=== PATIENT | male | born 1965 | race Caucasian/White ===

== ENCOUNTER 2020-04-05 16:52 | Emergency (ER) | payer BC ==
[2020-04-05] MEDS ORDERED: Diphtheria,Pertussis(Acell),Tetanus Vaccine 0.5 ML Syringe IM ONE (17:20)
[2020-04-05] MEDS ORDERED: Bacitracin Oint 1 GM U/D Packet TOP ONE (17:21)
--- NOTE | 2020-04-05 17:24 | EDM.PDOC ---
ED HPI GENERAL MEDICAL PROBLEM - General Chief Complaint: Laceration Stated Complaint: INJURY RT INDEX FINGER Time Seen by Provider: 04/05/20 17:04 - History of Present Illness INITIAL COMMENTS - FREE TEXT/NARRATIVE: History of present illness: Patient presents the ED with an injury to his right dominant index finger he was using a table saw when a board kicked back and struck him in the right index finger there is a small wound to the lateral aspect of the upper phalanx of the right index finger with some swelling he says it hurts to move the joint is having trouble moving it there is also an abrasion on his forearm that is superficial the patient states his tetanus is not up-to-date no other complaints no other concerns no other medical problems nothing makes it better moving it makes it worse. Review of systems: As per history of present illness and below otherwise all systems reviewed and negative. Past medical history: As per history of present illness and as reviewed below otherwise noncontributory. Surgical history: As per history of present illness and as reviewed below otherwise noncontributory. Social history: No reported history of drug or alcohol abuse. Family history: As per history of present illness and as reviewed below otherwise noncontributory. Physical exam: HEENT: Atraumatic, normocephalic, pupils reactive, negative for conjunctival pallor or scleral icterus, mucous membranes moist, throat clear, neck supple, nontender, trachea midline. Lungs: Clear to auscultation, breath sounds equal bilaterally, chest nontender. Heart: S1S2, regular, negative for clicks, rubs, or JVD. Abdomen: Soft, nondistended, nontender. Negative for masses or hepatosplenomegaly. Negative for costovertebral tenderness. Pelvis: Stable nontender. Genitourinary: Deferred. Rectal: Deferred. Extremities: Atraumatic, negative for cords or calf pain. Neurovascular unremarkable. There are a couple punctate wounds to the lateral aspect of the proximal index finger bleeding controlled no foreign bodies the joint is swollen it is tender he has good distal pulse motor and sensation there is a 2 cm small abrasion to the volar aspect of the forearm approximately mid forearm bleeding controlled Neuro: Awake, alert, oriented. Cranial nerves II through XII unremarkable. Cerebellum unremarkable. Motor and sensory unremarkable throughout. Exam nonfocal. Diagnostics: [] Therapeutics: [] Impression: [] Plan: Clean wounds update tetanus x-ray hand splint follow-up with [facility] [address], [address] [place] [address] [] Definitive disposition and diagnosis as appropriate pending reevaluation and review of above. Patient presents R index finger Pain Score (Numeric/FACES): 3 - Related Data Allergies Allergy/AdvReac Type Severity Reaction Status Date / Time No Known Allergies Allergy Verified 04/05/20 17:29 Home Meds: Home Meds Anti-Dm 04/05/20 [History] Naproxen [Naprosyn] 500 mg PO Q12HR #20 tab 04/05/20 [Rx] lisinopriL [Lisinopril] 0 mg PO DAILY 04/05/20 [History] ED ROS GENERAL - Review of Systems Review Of Systems: See Below ED EXAM, SKIN/RASH Exam: See Below Course - Vital Signs Text/Narrative:: 3 view right hand demonstrates no fractures no dislocations there is no evidence of foreign body read and interpreted by me Patient's finger will be cleaned and dressed and then he will be belem taped to his index finger follow-up with orthopedics. Last Recorded V/S: Last Vital Signs Temp 35.9 C L 04/05/20 17:09 Pulse 100 04/05/20 17:09 Resp 17 04/05/20 17:09 BP 132/79 04/05/20 17:09 Pulse Ox 94 L 04/05/20 17:09 - Orders/Labs/Meds Orders: Active Orders 24 hr Category Date Time Status Vaccines to be Administered [RC] PER UNIT ROUTINE Care 04/05/20 17:21 Active Hand Comp Min 3V Rt [CR] Stat Exams 04/05/20 17:21 Taken Meds: Medications Discontinued Medications Generic Name Dose Route Start Last Admin Trade Name Tato PRN Reason Stop Dose Admin Bacitracin 1 dose 04/05/20 17:21 04/05/20 17:36 Bacitracin Oint 1 Gm TOP 04/05/20 17:22 1 dose ONETIME ONE Administration Diphtheria/Tetanus/Acell Pertussis 0.5 ml 04/05/20 17:20 04/05/20 17:36 Adacel IM 04/05/20 17:21 0.5 ml .ONCE ONE Administration Departure - Departure Time of Disposition: 17:40 Disposition: Home, Self-Care 01 Condition: Good Clinical Impression: Abrasion, Sprain and strain of hand - Discharge Information Instructions: Puncture Wound, [id number], How to Use Cold Therapy, [id number] Referrals: PCP,None [Primary Care Provider] - Forms: ED Department Discharge Additional Instructions: The following information is given to patients seen in the emergency department who are being discharged to home. This information is to outline your options for follow-up care. We provide all patients seen in our emergency department with a follow-up referral. The need for follow-up, as well as the timing and circumstances, are variable depending upon the specifics of your emergency department visit. If you don't have a primary care physician on staff, we will provide you with a referral. We always advise you to contact your personal physician following an emergency department visit to inform them of the circumstance of the visit and for follow-up with them and/or the need for any referrals to a consulting specialist. The emergency department will also refer you to a specialist when appropriate. This referral assures that you have the opportunity for follow-up care with a specialist. All of these measure are taken in an effort to provide you with optimal care, which includes your follow-up. Under all circumstances we always encourage you to contact your private physician who remains a resource for coordinating your care. When calling for follow-up care, please make the office aware that this follow-up is from your recent emergency room visit. If for any reason you are refused follow-up, please contact the [facility] Emergency Department at and asked to speak to the emergency department charge nurse. [facility] Building [address] [place] [address], [address] [place] [address] Sepsis Event Note (ED) - Focused Exam Vital Signs: Vital Signs Temp Pulse Resp BP Pulse Ox 04/05/20 17:09 35.9 C L 100 17 132/79 94 L - My Orders Last 24 Hours: My Active Orders 04/05/20 17:21 Vaccines to be Administered [RC] PER UNIT ROUTINE Hand Comp Min 3V Rt [CR] Stat - Assessment/Plan Last 24 Hours: My Active Orders 04/05/20 17:21 Vaccines to be Administered [RC] PER UNIT ROUTINE Hand Comp Min 3V Rt [CR] Stat
--- NOTE | 2020-04-05 17:47 | CR ---
Indication: Right index finger laceration. Technique: A total of three views of the right hand were acquired. Comparison: None Findings: Bones: Alignment is normal. No fractures or bone lesions. Joint spaces: Mild osteoarthritic changes especially of the thumb. Soft tissues: There is no radiopaque foreign body. The laceration is not directly visible on this exam. Impression: No fracture. No foreign body. Mild osteoarthritis especially involving the thumb. Dictated by Juan Hauser MD @ Apr 05 2020 5:44PM Signed by Dr. Juan Hauser @ Apr 05 2020 5:47PM
== END 2020-04-05 17:56 | disposition home or self-care (01) ==
LOC: MW.ED 16:52
DX: S63.610A Unspecified sprain of right index finger, initial encounter (principal); S56.111A Strain of flexor muscle, fascia and tendon of right index finger at forearm level, initial encounter; S50.811A Abrasion of right forearm, initial encounter; Z79.899 Other long term (current) drug therapy; Z23 Encounter for immunization; W31.2XXA Contact with powered woodworking and forming machines, initial encounter
CPT/HCPCS: 73130-26-RT; 73130-RT; 90471; 90715; 99282; 99283-25

== ENCOUNTER 2022-03-17 11:33 | Emergency (ER) | payer BC ==
[2022-03-17] MEDS ORDERED: Aspirin 81 MG Tab.Chew PO ONE (11:52)
[2022-03-17 12:29] LABS: BLOOD UREA NITROGEN,BUN 16 mg/dL (7.0-18.0); CARBON DIOXIDE,CO2 23.3 mmol/L (21.0-32.0); CHLORIDE,CL 103 mmol/L (98-107); ESTIMATED GFR 99 mL/min (>60); GLUCOSE RANDOM 118 mg/dL (74-106); POTASSIUM,K 4.2 mmol/L (3.5-5.1); SODIUM,NA 138 mmol/L (136-148)
== END 2022-03-17 14:50 | disposition home or self-care (01) ==
LOC: MW.ED 11:33
DX: I20.8 Other forms of angina pectoris (principal); I10 Essential (primary) hypertension; E11.9 Type 2 diabetes mellitus without complications; E66.9 Obesity, unspecified; Z68.35 Body mass index [BMI] 35.0-35.9, adult; Z79.899 Other long term (current) drug therapy
CPT/HCPCS: 36415; 71045; 80048; 83735; 84484; 85025; 85610; 93005; 99285; A9270; 93010; 99284